=== PATIENT | female | born 1960 | race Two or more races ===

== ENCOUNTER 2017-04-07 11:59 | Emergency (ER) | payer SELFPAY ==
[2017-04-07 12:05] VITALS: BP 121/75
--- NOTE | 2017-04-07 12:28 | ED Physician Documentation ---
History of Present Illness - Stated complaint Stated Complaint: LT FOOT BLISTER - Chief complaint Chief Complaint: Ext Problem - History obtained from History obtained from: Patient, Family - History of Present Illness Timing: Other (1 year) Pain level max: 5 Pain level now: 4 Improved by: rest Worsened by: walking - Additonal information Additional information: Patient is a 56-year-old female who presents to the emergency department with what she states is a plantar wart to the bottom of the left foot. Was seen in the clinic and had a freezing procedure done. Has also been applying Salicylic acid. States that it has now become painful. Has not seen her primary care doctor since the original procedure several months ago. 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 : None HEENT: None Psych: None Musculoskeletal: None Derm: None - Past Surgical History Past Surgical History: Yes General: Appendectomy - Present Medications Home Medications: Ambulatory Orders Medication Instructions Recorded Confirmed Hydrocodone/Acetaminophen 1 - 2 each PO Q6H PRN #10 tablet 04/07/17 [Hydrocodon-Acetaminophen 5-325] - Allergies Allergies/Adverse Reactions: Allergies Allergy/AdvReac Type Severity Reaction Status Date / Time No Known Drug Allergies Allergy Verified 03/13/16 19:17 - Social History Does the pt smoke?: No Smoking Status: Never smoker Does the pt drink ETOH?: No Does the pt have substance abuse?: No - Immunizations Immunizations are current?: Yes - POLST Patient has POLST: No PD ED PE NORMAL - Vitals Vital signs reviewed: Yes - General General: Alert and oriented X 3, No acute distress - HEENT HEENT: Moist mucous membranes - Derm Derm: Warm and dry - Extremities Extremities: Other (L foot - plantar aspect 0.5cm x 0.5cm wart, no cellulitis or infection.) - Neuro Neuro: Alert and oriented X 3 - Psych Psych: Normal mood, Normal affect Results - Vitals Vitals: Vital Signs - 24 hr 04/07/17 12:02 Temperature 36.6 C Heart Rate 83 Respiratory 17 Rate Blood Pressure 121/75 O2 Saturation 98 Oxygen O2 Source Room air PD MEDICAL DECISION MAKING - ED course Complexity details: considered differential, d/w patient ED course: Patient is a 56-year-old female presents to the emergency department with plantar wart. No acute infection. Will refer to podiatry for further care. Patient counseled regarding signs and symptoms for which I believe and urgent re -evaluation would be necessary. Patient with good understanding of and agreement to plan and is comfortable going home at this time This document was made in part using voice recognition software. While efforts are made to proofread this document, sound alike and grammatical errors may occur. Departure - Departure Disposition: 01 Home, Self Care Clinical Impression: Plantar wart of left foot Condition: Good Instructions: ED Warts Plantar Follow-Up: Laura Light DPM [Provider Admit Priv/Credential] - Within 1 week Prescriptions: Hydrocodone/Acetaminophen [Hydrocodon-Acetaminophen 5-325] 1 - 2 each PO Q6H PRN #10 tablet PRN Reason: pain Comments: You need to follow up with podiatry for further care. Return if you worsen. Do not drink alcohol or drive while on narcotic pain medicine. Note that many narcotic pain relievers also contain tylenol/acetaminophen. Please ensure that your total dose of acetaminophen from all sources does not exceed 3 grams (3000mg) per day. You may constipated on this medication, take a stool softener such as "Colace" twice a day while you are on it. Also recommend a [id number]-[id number] laxative such as senna or MiraLAX any day that you do not have a bowel movement. If you received narcotic pain medication in the emergency department, do not drive or operate machinery for the next 24 hours.
== END 2017-04-07 12:48 | disposition home or self-care (01) ==
LOC: ED 11:59
DX: B07.0 Plantar wart (principal); Z86.73 Personal history of transient ischemic attack (TIA), and cerebral infarction without residual deficits
CPT/HCPCS: 99283

== ENCOUNTER 2018-04-11 10:01 | Outpatient (CLI) | payer SELFPAY ==
[2018-04-11 14:03] LABS: BASOPHILS # (AUTO) 0.1 10^3/uL (0.0-0.1); EOSINOPHILS # (AUTO) 0.6 10^3/uL (0.0-0.7); EOSINOPHILS % (AUTO) 7.5 %; HGB - HEMOGLOBIN 12.9 g/dL (12.0-16.0); LYMPHOCYTES # (AUTO) 2.9 10^3/uL (1.5-3.5); LYMPHOCYTES % (AUTO) 36.4 %; MEAN CORPUSCULAR HEMOGLOBIN 30.5 pg (27.0-31.0); MEAN CORPUSCULAR HGB CONC 34.9 g/dL (32.0-36.0); MEAN CORPUSCULAR VOLUME 87.4 fL (81.0-99.0); MEAN PLATELET VOLUME 9.1 fL (7.9-10.8); MONOCYTES # (AUTO) 0.5 10^3/uL (0.0-1.0); NEUTROPHILS # (AUTO) 3.9 10^3/uL (1.5-6.6); NEUTROPHILS % (AUTO) 49.1 %; PLT - PLATELET COUNT 377 10^3/uL (130-450); RED BLOOD COUNT 4.23 10^6/uL (4.20-5.40); RED CELL DISTRIBUTION WIDTH 13.5 % (12.0-15.0); WHITE BLOOD COUNT 7.9 x10^3/uL (4.8-10.8)
[2018-04-11 14:10] LABS: BILIRUBIN,URINE NEGATIVE (NEGATIVE); GLUCOSE, URINE (UA) NEGATIVE (NEGATIVE); KETONES,URINE (UA) NEGATIVE (NEGATIVE); LEUKOCYTE ESTERASE, URINE TRACE (NEGATIVE); NITRITE,URINE NEGATIVE (NEGATIVE); OCCULT BLOOD,URINE NEGATIVE (NEGATIVE); PH,URINE 5.5 PH (5.0-7.5); PROTEIN,URINE NEGATIVE (NEGATIVE); UROBILINOGEN,URINE 0.2 (NORMAL) E.U./dL (NORMAL)
[2018-04-11 14:14] LABS: ALBUMIN/GLOBULIN RATIO 1.1 (1.0-2.2); BILIRUBIN,TOTAL 1.3 mg/dL (0.2-1.0); CALCIUM 9.3 mg/dL (8.5-10.3); TOTAL PROTEIN 7.7 g/dL (6.7-8.2)
[2018-04-11 14:23] LABS: AMORPHOUS SEDIMENT,UR Marked /LPF; BACTERIA,URINE Rare /HPF (None Seen); CLARITY,URINE TURBID (CLEAR); RBC,URINE None Seen /HPF (0-5); SQUAMOUS EPITHELIAL CELL,UR NONE SEEN (<= Few)
== END 2018-04-11 23:59 | disposition home or self-care (01) ==
LOC: LAB.R 10:01
PROVIDERS: ATTEND Nurse Practitioner
DX: R53.83 Other fatigue (principal); R10.2 Pelvic and perineal pain
CPT/HCPCS: 80053; 81001; 85025; 87086

== ENCOUNTER 2018-04-29 16:25 | Outpatient (CLI) | payer SELFPAY | END 2018-04-29 23:59 | disposition home or self-care (01) | LOC: LAB.R 16:25 | PROVIDERS: ATTEND Registered Nurse | DX: N72 Inflammatory disease of cervix uteri (principal) | CPT/HCPCS: 87491; 87591 ==

== ENCOUNTER 2018-06-07 14:17 | Outpatient (CLI) | payer SELFPAY ==
--- NOTE | 2018-06-08 12:00 | MRI Report ---
Reason: SOLITARY RENAL CYCSTIC DISEASE Procedure Date: 06/07/2018 Accession Number: [id number] / [id number] Procedure: MRI - Abdomen W/O CPT Code: FULL RESULT: EXAM: MR ABDOMEN WITHOUT CONTRAST EXAM DATE: 06/07/2018 03:03 PM. CLINICAL HISTORY: Solitary renal cystic disease. Questionable septation in the left renal cyst, further characterization. COMPARISON: ABDOMEN/PELVIS W/ 03/13/2016 8:37 PM. TECHNIQUE: Multiplanar breath-hold T1, T2, and DWI sequences obtained through the abdomen on an MR scanner. Images are obtained without intravenous contrast administration. FINDINGS: Lung Bases: Unremarkable. Liver: Numerous hepatic cysts are noted, the largest of which measures 1.1 cm. Opposed phase imaging suggestive of hepatic steatosis. Gallbladder: The gallbladder is partially distended and appears normal with no wall thickening or stone. Bile Ducts: No intrahepatic or extrahepatic duct dilatation. Pancreas: The pancreas appears normal with no mass. The pancreatic duct measures 2 mm in diameter and appears normal with no stone or stricture. Spleen: The spleen appears normal. Kidneys: There is a sub-5 mm right renal cyst as well as a 1.1 cm left renal cyst. A septation is confirmed within the left renal cyst. No hydronephrosis. Adrenals: The adrenals appear normal. Bowel: The visualized segments of the small bowel and colon appear normal with no inflammation or obstruction. Retroperitoneum: The retroperitoneal structures appear normal with no mass or lymphadenopathy. Other: None. IMPRESSION: Septated left renal cyst, 1.1 cm size. Hepatic steatosis. RADIA
== END 2018-06-07 14:18 | disposition home or self-care (01) ==
LOC: DI 14:17
PROVIDERS: ATTEND Registered Nurse
DX: Q61.01 Congenital single renal cyst (principal); K76.0 Fatty (change of) liver, not elsewhere classified
CPT/HCPCS: 74181

== ENCOUNTER 2019-03-07 01:33 | Emergency (ER) | payer SELFPAY ==
--- NOTE | 2019-03-07 02:21 | ED Physician Documentation ---
PD HPI HEENT - Stated complaint Stated Complaint: FACE PX - Chief complaint Chief Complaint: Heent - History obtained from History obtained from: Patient, Family (daughter helping with translation at the approval of the patient) - History of Present Illness Timing - onset: How many days ago (3) Timing - duration: Days (3) Timing - details: Gradual onset, Still present (worsening each day, and is very painful today) Location: Other (left side of face around the orbit and to left side of head and around the ear, but not the ear canal area. Has increasing pain and today noted tenderness without rash nor sores in that area.) Improves: No: Medication (ibuprofen) Worsens: Other (palpation and movement). No: Swalllowing, Position Associated symptoms: Facial swelling, Headache (left parietal area and frontal area). No: Fever, Congestion, Unable to swallow Similar symptoms before: Has not had sx before Review of Systems Constitutional: denies: Fever, Chills, Myalgias Eyes: reports: Irritation. denies: Loss of vision, Discharge Ears: denies: Ear pain, Drainage/discharge Nose: denies: Rhinorrhea / runny nose, Congestion Throat: denies: Dental pain / toothache, Oral lesions / sores, Sore throat Skin: denies: Rash, Lesions Neurologic: reports: Headache. 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 : None HEENT: None Psych: None Musculoskeletal: None Derm: None - Past Surgical History Past Surgical History: Yes General: Appendectomy - Present Medications Home Medications: Ambulatory Orders Medication Instructions Recorded Confirmed traMADol [Ultram] 50 mg PO Q4-6H PRN #10 tablet 04/07/17 Amitriptyline [Elavil] 25 mg PO QPM #20 tablet 03/07/19 Ondansetron Odt [Zofran] 4 mg TL Q6H PRN #15 tablet 03/07/19 Oxycodone HCl/Acetaminophen 1 each PO Q6H PRN #20 tablet 03/07/19 [Percocet 5-325 mg Tablet] Valacyclovir HCl [Valacyclovir] 1,000 mg PO TID #20 tablet 03/07/19 dexAMETHasone [Decadron] 4 mg PO DAILY #7 tablet 03/07/19 - Allergies Allergies/Adverse Reactions: Allergies Allergy/AdvReac Type Severity Reaction Status Date / Time hydrocodone Allergy Headache Verified 03/07/19 01:44 - Social History Does the pt smoke?: No Smoking Status: Never smoker Does the pt drink ETOH?: No Does the pt have substance abuse?: No - Immunizations Immunizations are current?: Yes - POLST Patient has POLST: No PD ED PE NORMAL - Vitals Vital signs reviewed: Yes - General General: Alert and oriented X 3, Well developed/nourished, Other (appears in pain) - HEENT HEENT: PERRL, EOMI (no pain with light. Anterior and posterior chambars appear normal. ), Ears normal, Pharynx benign - Neck Neck: Supple, no meningeal sign, Other (there is tenderness to light touch and with palpation of the skin left side of face demarceted to exactly left of midline and periorbital and to left side of head. ) - Cardiac Cardiac: RRR, No murmur - Respiratory Respiratory: Clear bilaterally - Abdomen Abdomen: Soft, Non tender - Derm Derm: Normal color, Warm and dry, No rash - Neuro Neuro: Alert and oriented X 3, laboratory geneticist 2-12 intact, No motor deficit, No sensory deficit Results - Vitals Vitals: Oxygen O2 Source Room air PD MEDICAL DECISION MAKING - ED course Complexity details: considered differential (She has increasing pain and considerable tenderness to palpation and also just with light touch in the left periorbital and frontal and parietal areas. No rashes seen at this point but it sounds very likely to be developing shingles. We will treated as such at this time.), d/w patient Departure - Departure Disposition: 01 Home, Self Care Clinical Impression: Left-sided face pain Shingles Qualifiers: Herpes zoster complications: without complications Qualified Code(s): B02.9 - Zoster without complications Condition: Stable Record reviewed to determine appropriate education?: Yes Instructions: ED Shingles Prescriptions: Amitriptyline [Elavil] 25 mg PO QPM #20 tablet dexAMETHasone [Decadron] 4 mg PO DAILY #7 tablet Ondansetron Odt [Zofran] 4 mg TL Q6H PRN #15 tablet PRN Reason: Nausea / Vomiting Oxycodone HCl/Acetaminophen [Percocet 5-325 mg Tablet] 1 each PO Q6H PRN #20 tablet PRN Reason: pain Valacyclovir HCl [Valacyclovir] 1,000 mg PO TID #20 tablet Comments: I think the pain and tenderness are the symptoms of shingles outbreak. I would anticipate some rash develop in the next day or 2. Meanwhile we will treated as a nerve irritation and likely shingles. Valacyclovir antiviral 3 times a day for a week. Decadron steroid for inflammation of the nerve daily for a week. Elavil daily for 3 weeks to decrease the nerve irritation and inflammation as well. Tylenol or ibuprofen if needed for pains. Add ondansetron if needed for nausea (this may come from the medications at times). Oxycodone if needed for pain. Follow-up with your primary care or return to the ER if not improving symptoms well over the next 2 to 3 days and return sooner if worsening or other symptoms develop. Discharge Date/Time: 03/07/19 03:46
[2019-03-07] MEDS ORDERED: ACYCLOVIR 200 MG CAPSULE PO STA (03:01)
[2019-03-07] MEDS ORDERED: ONDANSETRON ODT 4 MG TABLET TL STA (03:01)
[2019-03-07] MEDS ORDERED: CHERRY SYRUP 10 ML UDC PO ONE (03:01)
[2019-03-07] MEDS ORDERED: HYDROmorphone 2 MG/ML VIAL IM STA (03:01)
[2019-03-07] MEDS ORDERED: DEXAMETHASONE 10 MG/ML VIAL PO STA (03:01)
[2019-03-07] MEDS ORDERED: oxyCODONE/ACET 5/325 Prepack 4 PO STA (03:01)
[2019-03-07] MEDS ORDERED: ACETAMINOPHEN 325 MG TABLET PO STA (03:01)
[2019-03-07 03:36] VITALS: BP 139/86
== END 2019-03-07 03:46 | disposition home or self-care (01) ==
LOC: ED 01:33
DX: B02.9 Zoster without complications (principal); R51 Headache
CPT/HCPCS: 96372; 99284; A9270; J1170; Q0162

== ENCOUNTER 2022-03-15 12:51 | Emergency (ER) | payer OTHER ==
[2022-03-15 13:19] VITALS: BP 120/66
--- NOTE | 2022-03-15 14:07 | ED Physician Documentation ---
History of Present Illness - Stated complaint Stated Complaint: BACK PAIN - Chief complaint Chief Complaint: Trauma Hd/Nk - Additonal information Additional information: 7-year-old female presents emergency department for evaluation of 2 days centralized neck pain that radiates down her body and spine. She denies any falls or trauma she denies any fevers. She states that when the pain comes it causes her to feel nauseated. She is denying chest pain or shortness of breath no cough. No history of diabetes. On exam in the room the patient is in the position and reports that everything everywhere hurts. Her son is acting as p rimary residential assistant. Patient declined formal Italian language line residential assistant. Patient was positive for COVID about 1 month ago and incidentally the patient's other son had the flu about 1 week ago. Patient has been taken Tylenol and ibuprofen without relief of symptoms Review of Systems Unable to obtain: Other (Italian language) Constitutional: reports: Myalgias. 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 : None HEENT: None Psych: None Musculoskeletal: None Derm: None - Past Surgical History Past Surgical History: Yes General: Appendectomy - Present Medications Home Medications: Ambulatory Orders Medication Instructions Recorded Confirmed traMADol [Ultram] 50 mg PO Q4-6H PRN #10 tablet 04/07/17 Amitriptyline [Elavil] 25 mg PO QPM #20 tablet 03/07/19 Ondansetron Odt [Zofran] 4 mg TL Q6H PRN #15 tablet 03/07/19 Oxycodone HCl/Acetaminophen 1 each PO Q6H PRN #20 tablet 03/07/19 [Percocet 5-325 mg Tablet] Valacyclovir HCl [Valacyclovir] 1,000 mg PO TID #20 tablet 03/07/19 dexAMETHasone [Decadron] 4 mg PO DAILY #7 tablet 03/07/19 - Allergies Allergies/Adverse Reactions: Allergies Allergy/AdvReac Type Severity Reaction Status Date / Time hydrocodone Allergy Headache Verified 03/15/22 13:19 - Social History Does the pt smoke?: No Smoking Status: Never smoker Does the pt drink ETOH?: No Does the pt have substance abuse?: No - Immunizations Immunizations are current?: Yes - POLST Patient has POLST: No PD ED PE NORMAL - General General: Alert and oriented X 3, Well developed/nourished (Appears uncomfortable and in the position. Hugging her chest as though everything hurts) - HEENT HEENT: Atraumatic, Ears normal, Moist mucous membranes - Neck Neck: Supple, no meningeal sign, No adenopathy, Other (Full range of motion of cervical spine in all planes without tenderness. However any palpation of the cervical or thoracic spine including the paraspinous muscles elicits tenderness.) - Cardiac Cardiac: RRR, No murmur - Respiratory Respiratory: No respiratory distress, Clear bilaterally - Abdomen Abdomen: Normal bowel sounds, Soft - Back Back: No CVA TTP - Derm Derm: Normal color, Warm and dry - Extremities Extremities: No deformity, No tenderness to palpate, Normal ROM s pain - Neuro Neuro: Alert and oriented X 3, manager site 2-12 intact Eye Opening: Spontaneous Motor: Obeys Commands Verbal: Oriented GCS Score: 15 Results - Vitals Vitals: Vital Signs - 24 hr 03/15/22 13:13 Temperature 36.9 C Heart Rate 90 Respiratory 18 Rate Blood Pressure 120/66 O2 Saturation 97 Oxygen O2 Source Room air - Labs Labs: Laboratory Tests 03/15/22 14:06 Influenza A (Rapid) POSITIVE H Influenza B (Rapid) Negative - Rads (name of study) cxr Radiology: Final report received (No acute process) PD MEDICAL DECISION MAKING - ED course Complexity details: reviewed results, re-evaluated patient, considered differential, d/w patient, d/w family ED course: This is a 61-year-old female that presents emergency department for 3 days of neck pain. No falls or trauma and the exam of her neck is rather reassuring with full range of motion in all planes. However she states that the pain radiates down her entire spine. On palpation pain was elicited but pain was also elicited with palpation of the back and body in general. She was nonmeningeal. She was hugging her self as though everything hurt and her son had recently been positive for the flu. Given this knowledge I did do a rapid influenza test and she is positive for influenza A. However she is outside the window of treatment for consideration of Tamiflu. I did obtain a chest x-ray and there are no findings to suggest pneumonia. I discussed the findings of influenza A with the patient and her son. We discussed routine conservative measurements that can include ibuprofen and Tylenol, good hydration. We also discussed that most of the symptoms will begin to resolve between 5 and 7 days. Emergent return precautions were discussed for worsening symptoms. Departure - Departure Disposition: 01 Home, Self Care Clinical Impression: Influenza A, Neck pain Condition: Stable Record reviewed to determine appropriate education?: Yes Instructions: ED Flu Comments: Sharon tested positive for influenza A today. This is the cause of her neck and pain in general. I do recommend that she take 600 mg of ibuprofen with food 2-3 times a day. Alternatively she can try taking 500 mg of Tylenol 3 times a day as well. In general is important to stay well-hydrated this in fact may help reduce her body aches. Her chest x-ray today is normal and does not show any findings of pneumonia. Most people that have the flu will have a lot of body aches and pain for 3 to 7 days. I expect that she will start to feel better in a few days. If her symptoms are worsening, she develops high fevers, has uncontrolled vomiting or diarrhea then she should return to the ER for a second evaluation.
--- NOTE | 2022-03-15 14:23 | XRAY Report ---
PROCEDURE: Chest 1 View X-Ray INDICATIONS: chest pain TECHNIQUE: One view of the chest was acquired. COMPARISON: 01/19/2015 FINDINGS: Surgical changes and devices: None. Lungs and pleura: No pleural effusions or pneumothorax. Lungs are clear. Mediastinum: Mediastinal contours appear normal. Heart size is normal. Bones and chest wall: No suspicious bony lesions. Overlying soft tissues appear unremarkable. IMPRESSION: No acute process. Reviewed by: Ermelinda Thompson MD on 03/15/2022 1:21 PM [facility] [[email or web address]] Approved by: Ermelinda Thompson MD on 03/15/2022 1:21 PM [facility] [[email or web address]] Station ID: [id number]
[2022-03-15] MEDS ORDERED: IBUPROFEN 600 MG TABLET PO STA (14:37)
== END 2022-03-15 15:06 | disposition home or self-care (01) ==
LOC: ED 12:51
DX: J10.1 Influenza due to other identified influenza virus with other respiratory manifestations (principal); M54.2 Cervicalgia; Z86.16 Personal history of COVID-19
CPT/HCPCS: 71045; 87275; 87276; 99282; 99283; A9270

== ENCOUNTER 2022-12-17 08:00 | Outpatient (CLI) | payer OTHER ==
[2022-12-17 18:08] LABS: BILIRUBIN,URINE NEGATIVE (NEGATIVE); GLUCOSE, URINE (UA) NEGATIVE (NEGATIVE); KETONES,URINE (UA) NEGATIVE (NEGATIVE); LEUKOCYTE ESTERASE, URINE NEGATIVE (NEGATIVE); NITRITE,URINE NEGATIVE (NEGATIVE); OCCULT BLOOD,URINE NEGATIVE (NEGATIVE); PROTEIN,URINE NEGATIVE (NEGATIVE); UROBILINOGEN,URINE 0.2 (NORMAL) E.U./dL (NORMAL)
[2022-12-17 18:27] LABS: CLARITY,URINE CLEAR (CLEAR)
[2022-12-17 19:01] LABS: WBC,URINE 0-3 /HPF (0-5)
[2022-12-17 19:02] LABS: BACTERIA,URINE Few /HPF (None Seen); RBC,URINE None Seen /HPF (0-5); SQUAMOUS EPITHELIAL CELL,UR FEW Squamous (<= Few)
== END 2022-12-17 23:59 | disposition home or self-care (01) ==
LOC: LAB 08:00
PROVIDERS: ATTEND Nurse Practitioner
DX: R10.2 Pelvic and perineal pain (principal); R10.31 Right lower quadrant pain; R10.11 Right upper quadrant pain
CPT/HCPCS: 81001; 87086

== ENCOUNTER 2022-12-17 14:36 | Outpatient (CLI) | payer OTHER ==
[2022-12-17 14:50] LABS: BASOPHILS # (AUTO) 0.1 10^3/uL (0.0-0.1); BASOPHILS % (AUTO) 0.9 %; EOSINOPHILS # (AUTO) 0.3 10^3/uL (0.0-0.7); EOSINOPHILS % (AUTO) 3.8 %; HCT - HEMATOCRIT 34.5 % (37.0-47.0); HGB - HEMOGLOBIN 11.5 g/dL (12.0-16.0); LYMPHOCYTES # (AUTO) 2.9 10^3/uL (1.5-3.5); LYMPHOCYTES % (AUTO) 31.8 %; MEAN CORPUSCULAR HEMOGLOBIN 29.9 pg (27.0-31.0); MEAN CORPUSCULAR HGB CONC 33.3 g/dL (32.0-36.0); MEAN CORPUSCULAR VOLUME 89.6 fL (81.0-99.0); MEAN PLATELET VOLUME 9.6 fL (7.9-10.8); MONOCYTES # (AUTO) 0.6 10^3/uL (0.0-1.0); MONOCYTES % (AUTO) 6.1 %; NEUTROPHILS # (AUTO) 5.1 10^3/uL (1.5-6.6); NEUTROPHILS % (AUTO) 57.3 %; PLT - PLATELET COUNT 397 10^3/uL (130-450); RED BLOOD COUNT 3.85 10^6/uL (4.20-5.40); RED CELL DISTRIBUTION WIDTH 12.6 % (12.0-15.0)
[2022-12-17 15:02] LABS: ALBUMIN 3.9 g/dL (3.2-5.5); ALBUMIN/GLOBULIN RATIO 1.1 (1.0-2.2); BILIRUBIN,TOTAL 0.9 mg/dL (0.2-1.0); CALCIUM 8.8 mg/dL (8.5-10.3); CREATININE 1.7 mg/dL (0.4-1.0); POTASSIUM 3.8 mmol/L (3.5-5.0); TOTAL PROTEIN 7.6 g/dL (6.7-8.2)
--- NOTE | 2022-12-17 18:18 | XRAY Report ---
PROCEDURE: Thoracic Spine 2 View INDICATIONS: THORACIC BACK PAIN TECHNIQUE: 2 views of the thoracic spine were acquired. COMPARISON: None. FINDINGS: Bones: No fractures or dislocations. Mild degenerative endplate changes are seen in mid to lower tho racic spine. No suspicious bony lesions. 12 pairs of ribs are noted, and appear intact where visuali zed. Soft tissues: No paravertebral stripe thickening. 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 No acute compression fracture or spond ylolisthesis. Reviewed by: Antoine Garcia MD on 12/17/2022 6:17 PM PDT Approved by: Antoine Garcia MD on 12/17/2022 6:17 PM PDT Station ID: [id number]
--- NOTE | 2022-12-17 18:18 | XRAY Report ---
PROCEDURE: Lumbar Spine 2 View INDICATIONS: BACK PAIN LOW TECHNIQUE: 3 views of the lumbar spine were acquired. COMPARISON: None. FINDINGS: Bones: 5 [id number] vertebrae are present. There is normal bony alignment. Degenerative endpl ate changes, loss of disc height and bilateral facet arthrosis throughout lumbar spine is seen more n otably at L4-5 and L5-S1 levels. No vertebral body compression fractures. No suspicious bony lesions . Soft tissues: Overlying bowel gas pattern is normal. No suspicious soft tissue calcifications. IMPRESSION: No acute compression fracture. Degenerative disc disease throughout lumbar spine. Reviewed by: Antoine Garcia MD on 12/17/2022 6:17 PM PDT Approved by: Antoine Garcia MD on 12/17/2022 6:17 PM PDT Station ID: [id number]
== END 2022-12-17 14:37 | disposition home or self-care (01) ==
LOC: DI 14:36
PROVIDERS: ATTEND Nurse Practitioner
DX: M51.34 Other intervertebral disc degeneration, thoracic region (principal); M51.36 Other intervertebral disc degeneration, lumbar region; R10.2 Pelvic and perineal pain; R10.31 Right lower quadrant pain; R10.11 Right upper quadrant pain
CPT/HCPCS: 36415; 80053; 81001; 82150; 83690; 85025; 87086

== ENCOUNTER 2022-12-18 08:55 | Outpatient (CLI) | payer OTHER ==
[2022-12-18] MEDS ORDERED: IOVERSOL 320 100 ML VIAL IVP ONE (10:58)
[2022-12-18] MEDS ORDERED: BARIUM SULFATE 450 ML BOTTLE PO ONE (10:58)
--- NOTE | 2022-12-18 11:55 | CT Report ---
PROCEDURE: ABDOMEN/PELVIS W INDICATIONS: ABD PAIN CONTRAST: 100ml Optiray 320 TECHNIQUE: After the administration of oral and intravenous contrast, 5 mm thick sections acquired from the diap hragms to the symphysis. 5 mm thick coronal and sagittal reformats were acquired. For radiation dos e reduction, the following was used: automated exposure control, adjustment of mA and/or kV accordin g to patient size. COMPARISON: MRI abdomen 06/07/2018, CT abdomen pelvis 03/13/2016. FINDINGS: Image quality: Excellent. Lung bases and heart: Unremarkable. Liver: No solid mass. Numerous tiny hepatic cysts, unchanged. Gallbladder and biliary tree: Not distended. No biliary ductal dilatation. Spleen: No splenomegaly. Pancreas: No pancreatic ductal dilation. Adrenals: No adrenal nodule. Kidneys and ureters: No hydronephrosis. No renal cystic lesion which requires follow up. No solid mas s. Bowel and peritoneum: No bowel distension. No pathologic free fluid. Appendix is absent. Lymph nodes: No central or retroperitoneal adenopathy. Vessels: No infrarenal aortic aneurysm. PELVIS Reproductive organs: Retroverted uterus. Bladder: Cystocele. No stone. Pelvic lymph nodes: No pelvic adenopathy by size criteria. Bones: No aggressive osseous abnormality. Other: No significant ventral or inguinal hernia. IMPRESSION: Source for abdominal pain is not identified. No bowel obstruction. No free fluid. Post appendectomy. Cystocele. Reviewed by: Sj Pereira MD on 12/18/2022 11:54 AM PDT Approved by: Sj Pereira MD on 12/18/2022 11:54 AM PDT Station ID: [id number]
== END 2022-12-18 08:56 | disposition home or self-care (01) ==
LOC: DI 08:55
PROVIDERS: ATTEND Nurse Practitioner
DX: R10.11 Right upper quadrant pain (principal); R10.31 Right lower quadrant pain; R10.2 Pelvic and perineal pain; N81.10 Cystocele, unspecified; Z90.89 Acquired absence of other organs
CPT/HCPCS: 74177; A9270; Q9967

== ENCOUNTER 2023-01-07 15:15 | Outpatient (CLI) | payer OTHER ==
[2023-01-07 16:05] LABS: BILIRUBIN,URINE NEGATIVE (NEGATIVE); GLUCOSE, URINE (UA) NEGATIVE (NEGATIVE); KETONES,URINE (UA) NEGATIVE (NEGATIVE); LEUKOCYTE ESTERASE, URINE NEGATIVE (NEGATIVE); NITRITE,URINE NEGATIVE (NEGATIVE); OCCULT BLOOD,URINE NEGATIVE (NEGATIVE); PROTEIN,URINE NEGATIVE (NEGATIVE); UROBILINOGEN,URINE 0.2 (NORMAL) E.U./dL (NORMAL)
[2023-01-07 16:08] LABS: CALCIUM 9.4 mg/dL (8.5-10.3); CREATININE 1.4 mg/dL (0.6-1.3); PHOSPHORUS 2.9 mg/dL (2.5-5.0); POTASSIUM 3.8 mmol/L (3.5-4.5)
[2023-01-07 16:12] LABS: CLARITY,URINE CLEAR (CLEAR)
[2023-01-07 16:21] LABS: BACTERIA,URINE None Seen /HPF (None Seen); RBC,URINE None Seen /HPF (0-5); SQUAMOUS EPITHELIAL CELL,UR NONE SEEN (<= Few); WBC,URINE 0-3 /HPF (0-5)
[2023-01-07 16:28] LABS: CREATININE,URINE 19.8 mg/dL; TOTAL PROTEIN,URINE TIMED < 4 mg/dL
[2023-01-08 02:08] LABS: HEPATITIS B SURFACE AB QUANT <3.1 mIU/mL (Immunity>9.9)
[2023-01-08 04:09] LABS: COMPLEMENT C3 137 mg/dL (82-167); COMPLEMENT C4 24 mg/dL (12-38); HCV AB Non Reactive (Non Reactive)
[2023-01-09 06:10] LABS: MYELOPEROXIDASE (MPO) AB <0.2 units (0.0-0.9); PROTEINASE 3 (PR-3) AB <0.2 units (0.0-0.9)
[2023-01-11 10:08] LABS: ANTINUCLEAR ANTIBODIES IFA Positive (.)
[2023-01-11 16:09] LABS: A/G RATIO 1.1 (0.7-1.7); ALBUMIN 3.8 g/dL (2.9-4.4); ALPHA-1-GLOBULIN 0.2 g/dL (0.0-0.4); ALPHA-2-GLOBULIN 0.9 g/dL (0.4-1.0); BETA GLOBULIN 1.2 g/dL (0.7-1.3); GAMMA GLOBULIN 1.3 g/dL (0.4-1.8); GLOBULIN TOTAL 3.6 g/dL (2.2-3.9); IMMUNOGLOBULIN A (IGA) 343 mg/dL (87-352); IMMUNOGLOBULIN G (IGG) 1202 mg/dL (586-1602); IMMUNOGLOBULIN M (IGM) 147 mg/dL (26-217); M-SPIKE Not Observed g/dL (Not Observed); PROTEIN TOTAL 7.4 g/dL (6.0-8.5)
== END 2023-01-07 15:16 | disposition home or self-care (01) ==
LOC: LAB 15:15
PROVIDERS: ATTEND Internal Medicine Nephrology
DX: N25.81 Secondary hyperparathyroidism of renal origin (principal); I50.32 Chronic diastolic (congestive) heart failure; B19.10 Unspecified viral hepatitis B without hepatic coma; R80.9 Proteinuria, unspecified; L93.2 Other local lupus erythematosus; M31.30 Wegener's granulomatosis without renal involvement; N00.9 Acute nephritic syndrome with unspecified morphologic changes; I77.6 Arteritis, unspecified; D47.2 Monoclonal gammopathy; N30.00 Acute cystitis without hematuria; E83.30 Disorder of phosphorus metabolism, unspecified; B17.10 Acute hepatitis C without hepatic coma
CPT/HCPCS: 36415; 80048; 81001; 81599; 82570; 82784; 83516; 83970; 84100; 84155; 84156; 84165; 86036; 86038; 86160; 86317; 86334; 86803

== ENCOUNTER 2023-01-22 15:58 | Outpatient (CLI) | payer OTHER ==
--- NOTE | 2023-01-22 17:11 | Ultrasound Report ---
PROCEDURE: Retroperitoneal INDICATIONS: KIDNEY DISEASE TECHNIQUE: Real-time scanning was performed of the retroperitoneal organs, with image documentation. COMPARISON: CT abdomen and pelvis with contrast dated 12/18/2022. FINDINGS: Kidneys: Kidneys are normal in size. Right kidney measures 9.4 cm long on today's ultrasound. It is a under estimation, as the kidneys at least 10.[address] left kidney measures 8.9 cm below . This is also noted in underestimation, as by CT, it measures 9.3 cm. Right renal cortical thickness is 8.9 cm; left renal cortical thickness is 0.6 cm. No solid masses, hydronephrosis, or nephrolithi asis. Bladder: Pre-void bladder volume is 274.2 mL. Post-void residual is 14.9 mL. Pre-void images demon strate no intraluminal masses or stones. On pre-void images, bilateral ureteral jets are noted with color Doppler interrogation. (Of note, ureteral jets may not be detectable in up to 25% of cases due to insufficient differences in specific gravity between ureteral and bladder urine). Miscellaneous: No free abdominal fluid. IMPRESSION: Normal size kidneys with no evidence of hydronephrosis. Unremarkable bladder with no significant post void residual. Reviewed by: Sunday Jamison MD on 01/22/2023 5:09 PM PDT Approved by: Sunday Jamison MD on 01/22/2023 5:09 PM PDT Station ID: [id number]
== END 2023-01-22 15:59 | disposition home or self-care (01) ==
LOC: DI 15:58
PROVIDERS: ATTEND Internal Medicine Nephrology
DX: N18.32 Chronic kidney disease, stage 3b (principal)

== ENCOUNTER 2023-02-11 14:01 | Outpatient (CLI) | payer OTHER ==
[2023-02-11 14:45] LABS: CREATININE 1.5 mg/dL (0.6-1.3); POTASSIUM 3.7 mmol/L (3.5-4.5)
== END 2023-02-11 14:02 | disposition home or self-care (01) ==
LOC: LAB 14:01
PROVIDERS: ATTEND Internal Medicine Nephrology
DX: N05.9 Unspecified nephritic syndrome with unspecified morphologic changes (principal)
CPT/HCPCS: 36415; 80048

== ENCOUNTER 2023-03-05 08:55 | Outpatient (CLI) | payer OTHER ==
[2023-03-05 09:06] LABS: BASOPHILS # (AUTO) 0.1 10^3/uL (0.0-0.1); BASOPHILS % (AUTO) 1.8 %; EOSINOPHILS # (AUTO) 0.6 10^3/uL (0.0-0.7); EOSINOPHILS % (AUTO) 7.7 %; HGB - HEMOGLOBIN 11.3 g/dL (12.0-16.0); LYMPHOCYTES # (AUTO) 2.7 10^3/uL (1.5-3.5); LYMPHOCYTES % (AUTO) 36.2 %; MEAN CORPUSCULAR HEMOGLOBIN 29.9 pg (27.0-31.0); MEAN CORPUSCULAR HGB CONC 33.2 g/dL (32.0-36.0); MEAN CORPUSCULAR VOLUME 89.9 fL (81.0-99.0); MONOCYTES # (AUTO) 0.4 10^3/uL (0.0-1.0); MONOCYTES % (AUTO) 5.7 %; NEUTROPHILS # (AUTO) 3.6 10^3/uL (1.5-6.6); NEUTROPHILS % (AUTO) 48.5 %; PLT - PLATELET COUNT 321 10^3/uL (130-450); RED BLOOD COUNT 3.78 10^6/uL (4.20-5.40); WHITE BLOOD COUNT 7.3 x10^3/uL (4.8-10.8)
[2023-03-05 09:21] LABS: ALBUMIN 4.4 g/dL (3.2-5.5); ALBUMIN/GLOBULIN RATIO 1.6 (1.0-2.2); ALKALINE PHOSPHATASE 88 IU/L (42-121); ALT ALANINE AMINOTRANSFERASE 13 IU/L (10-60); AST ASPARTATE AMINOTRANSFERASE 18 IU/L (10-42); BILIRUBIN,TOTAL 0.9 mg/dL (0.2-1.0); BUN - BLOOD UREA NITROGEN 26 mg/dL (6-20); CALCIUM 9.8 mg/dL (8.5-10.3); CARBON DIOXIDE - CO2 23 mmol/L (21-32); CHLORIDE 108 mmol/L (101-111); CHOL/HDL RATIO 7.4 (<4.4); CHOLESTEROL 280 mg/dL; CREATININE 1.4 mg/dL (0.6-1.3); GFR - MDRD 38 (>89); GLUCOSE 93 mg/dL (74-104); HDL CHOLESTEROL 38 mg/dL; LDL CHOLESTEROL,CALCULATED 185 mg/dL; LDL/HDL RATIO 4.9 (<4.4); POTASSIUM 4.5 mmol/L (3.5-4.5); SODIUM 140 mmol/L (135-145); TOTAL PROTEIN 7.2 g/dL (6.4-8.9); TRIGLYCERIDES 285 mg/dL (48-352); VLDL CHOLESTEROL 57 mg/dL
[2023-03-05 11:03] LABS: ESTIMATED AVERAGE GLUCOSE 111 mg/dL (70-100); HEMOGLOBIN A1c% 5.5 % (4.27-6.07)
== END 2023-03-05 08:56 | disposition home or self-care (01) ==
LOC: LAB 08:55
PROVIDERS: ATTEND Nurse Practitioner
DX: R53.83 Other fatigue (principal); Z13.220 Encounter for screening for lipoid disorders; E66.9 Obesity, unspecified
CPT/HCPCS: 36415; 80053; 80061; 83036; 83721; 85025

== ENCOUNTER 2023-07-19 08:15 | Outpatient (CLI) | payer OTHER ==
[2023-07-19 12:13] LABS: BASOPHILS # (AUTO) 0.1 10^3/uL (0.0-0.1); BILIRUBIN,URINE NEGATIVE (NEGATIVE); EOSINOPHILS # (AUTO) 0.4 10^3/uL (0.0-0.7); EOSINOPHILS % (AUTO) 5.2 %; GLUCOSE, URINE (UA) NEGATIVE (NEGATIVE); HCT - HEMATOCRIT 32.9 % (37.0-47.0); HGB - HEMOGLOBIN 10.2 g/dL (12.0-16.0); KETONES,URINE (UA) NEGATIVE (NEGATIVE); LYMPHOCYTES # (AUTO) 2.8 10^3/uL (1.5-3.5); LYMPHOCYTES % (AUTO) 41.6 %; MEAN CORPUSCULAR HEMOGLOBIN 29.2 pg (27.0-31.0); MEAN CORPUSCULAR VOLUME 94.3 fL (81.0-99.0); MONOCYTES # (AUTO) 0.4 10^3/uL (0.0-1.0); MONOCYTES % (AUTO) 5.6 %; NEUTROPHILS # (AUTO) 3.1 10^3/uL (1.5-6.6); NEUTROPHILS % (AUTO) 46.3 %; NITRITE,URINE NEGATIVE (NEGATIVE); OCCULT BLOOD,URINE NEGATIVE (NEGATIVE); PH,URINE 6.5 PH (5.0-7.5); PLT - PLATELET COUNT 373 10^3/uL (130-450); PROTEIN,URINE NEGATIVE (NEGATIVE); RED BLOOD COUNT 3.49 10^6/uL (4.20-5.40); RED CELL DISTRIBUTION WIDTH 13.1 % (12.0-15.0); UROBILINOGEN,URINE 0.2 (NORMAL) E.U./dL (NORMAL); WHITE BLOOD COUNT 6.7 x10^3/uL (4.8-10.8)
[2023-07-19 12:30] LABS: CLARITY,URINE CLEAR (CLEAR)
[2023-07-19 12:35] LABS: BACTERIA,URINE Rare /HPF (None Seen); LEUKOCYTE ESTERASE, URINE 826880 (NEGATIVE); RBC,URINE 0-5 /HPF (0-5); SQUAMOUS EPITHELIAL CELL,UR RARE Squamous (<= Few); WBC,URINE 0-3 /HPF (0-5)
[2023-07-19 12:40] LABS: ALBUMIN 3.7 g/dL (3.2-5.5); ALBUMIN/GLOBULIN RATIO 1.3 (1.0-2.2); ALKALINE PHOSPHATASE 79 IU/L (42-121); ALT ALANINE AMINOTRANSFERASE 27 IU/L (10-60); AST ASPARTATE AMINOTRANSFERASE 20 IU/L (10-42); BILIRUBIN,TOTAL 0.5 mg/dL (0.2-1.0); BUN - BLOOD UREA NITROGEN 26 mg/dL (6-20); CALCIUM 9.4 mg/dL (8.5-10.3); CARBON DIOXIDE - CO2 23 mmol/L (21-32); CHLORIDE 112 mmol/L (101-111); CHOL/HDL RATIO 7.1 (<4.4); CHOLESTEROL 219 mg/dL; CREATININE 1.4 mg/dL (0.6-1.3); GFR - MDRD 38 (>89); GLUCOSE 91 mg/dL (74-104); HDL CHOLESTEROL 31 mg/dL; LDL CHOLESTEROL,CALCULATED 146 mg/dL; LDL/HDL RATIO 4.7 (<4.4); POTASSIUM 4.2 mmol/L (3.5-4.5); SODIUM 142 mmol/L (135-145); TOTAL PROTEIN 6.6 g/dL (6.4-8.9); TRIGLYCERIDES 211 mg/dL (48-352); VLDL CHOLESTEROL 42 mg/dL
== END 2023-07-19 08:16 | disposition home or self-care (01) ==
LOC: LAB.N 08:15
PROVIDERS: ATTEND Nurse Practitioner
DX: N18.32 Chronic kidney disease, stage 3b (principal); E78.5 Hyperlipidemia, unspecified; R10.31 Right lower quadrant pain
CPT/HCPCS: 36415; 80053; 80061; 81001; 83721; 85025

== ENCOUNTER 2023-09-09 01:25 | Emergency (ER) | payer OTHER ==
[2023-09-09 01:44] VITALS: O2SAT 100
[2023-09-09 01:54] LABS: RAPID STREP SCREEN Negative (Negative)
[2023-09-09] MEDS: ONDANSETRON ODT 4 MG TABLET TL STA (02:07)
[2023-09-09 02:36] LABS: B. PARAPERTUSSIS- RESP PCR PAN NOT DETECTED; B. PERTUSSIS- RESP PCR PANEL NOT DETECTED; C. PNEUMONIAE- RESP PCR PANEL NOT DETECTED; CORONAVIRUS 229E-RESP PCR NOT DETECTED; CORONAVIRUS HKU1-RESP PCR NOT DETECTED; CORONAVIRUS NL63-RESP PCR NOT DETECTED; CORONAVIRUS OC43-RESP PCR NOT DETECTED; HUMAN METAPNEUMOVIRUS NOT DETECTED; INFLUENZA A- RESP PCR PANEL NOT DETECTED; INFLUENZA B - RESP PCR PANEL NOT DETECTED; M. PNEUMONIAE- RESP PCR PANEL NOT DETECTED; PARAINFLUENZA VIRUS 1 NOT DETECTED; PARAINFLUENZA VIRUS 2 NOT DETECTED; PARAINFLUENZA VIRUS 3 NOT DETECTED; PARAINFLUENZA VIRUS 4 NOT DETECTED; RHINOVIRUS/ENTEROVIRUS NOT DETECTED; RSV- RESP PCR PANEL NOT DETECTED; SARS-CoV-2 -RESP PCR PANEL NOT DETECTED
--- NOTE | 2023-09-09 02:39 | ED Physician Documentation ---
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 She was sick while in [place] and took a lot of [id number] medications that may have irritated her stomach. Endorses burning sensation radiating up the throat. Denies fever today. PD PAST MEDICAL HISTORY - Past Medical History Past Medical History: No Cardiovascular: None Respiratory: None Endocrine/Autoimmune: None GI: None SCRATCHER: None : None HEENT: None Psych: None Musculoskeletal: None Derm: None - Past Surgical History Past Surgical History: Yes General: Appendectomy - Present Medications Home Medications: Ambulatory Orders Medication Instructions Recorded Confirmed traMADol [Ultram] 50 mg PO Q4-6H PRN #10 tablet 04/07/17 Amitriptyline [Elavil] 25 mg PO QPM #20 tablet 03/07/19 Ondansetron Odt [Zofran] 4 mg TL Q6H PRN #15 tablet 03/07/19 Oxycodone HCl/Acetaminophen 1 each PO Q6H PRN #20 tablet 03/07/19 [Percocet 5-325 mg Tablet] Valacyclovir HCl [Valacyclovir] 1,000 mg PO TID #20 tablet 03/07/19 dexAMETHasone [Decadron] 4 mg PO DAILY #7 tablet 03/07/19 Famotidine [Pepcid] 20 mg PO BID PRN #30 tablet 09/09/23 - Allergies Allergies/Adverse Reactions: Allergies Allergy/AdvReac Type Severity Reaction Status Date / Time hydrocodone Allergy Headache Verified 09/09/23 01:38 - Social History Does the pt smoke?: No Smoking Status: Never smoker Does the pt drink ETOH?: No Does the pt have substance abuse?: No - Immunizations Immunizations are current?: Yes - POLST Patient has POLST: No PD ED PE NORMAL - Vitals Vital signs reviewed: Yes - General General: Alert and oriented X 3, No acute distress, Well developed/nourished - HEENT HEENT: Atraumatic, PERRL, EOMI, Moist mucous membranes, Pharynx benign - Neck Neck: Supple, no meningeal sign - Cardiac Cardiac: RRR - Respiratory Respiratory: No respiratory distress, Clear bilaterally Results - Vitals Vitals: Vital Signs - 24 hr 09/09/23 01:36 Temperature 36.5 C Heart Rate 72 Respiratory 18 Rate Blood Pressure 154/75 H O2 Saturation 100 Oxygen O2 Source Room air - Labs Labs: Laboratory Tests 09/09/23 09/09/23 01:45 01:45 Nasal Adenovirus (PCR) NOT DETECTED Nasal B. parapertussis DNA (PCR) NOT DETECTED Nasal Coronavir 229E PCR NOT DETECTED Nasal Coronavir HKU1 PCR NOT DETECTED Nasal Coronavir NL63 PCR NOT DETECTED Nasal Coronavir OC43 PCR NOT DETECTED Nasal Enterovir/Rhinovir PCR NOT DETECTED Nasal Influenza B PCR NOT DETECTED Nasal Influenza A PCR NOT DETECTED Nasal Parainfluen 1 PCR NOT DETECTED Nasal Parainfluen 2 PCR NOT DETECTED Nasal Parainfluen 3 PCR NOT DETECTED Nasal Parainfluen 4 PCR NOT DETECTED Nasal RSV (PCR) NOT DETECTED Nasal B.pertussis DNA PCR NOT DETECTED Nasal C.pneumoniae (PCR) NOT DETECTED Brad Human Metapneumo PCR NOT DETECTED Nasal M.pneumoniae (PCR) NOT DETECTED Nasal SARS-CoV-2 (PCR) NOT DETECTED Group A Strep Rapid Negative PD Medical Decision Making - ED course ED course: 63-year-old woman presents with burning sensation in the throat moving upward, possibly mediated by acid reflux. GI cocktail was ordered and patient had significant relief. Pepcid sent to pharmacy. She also had strep and RVP that was negative here in the ED. Plan to follow-up with her primary care provider for referral to GI. Return precautions given. Departure - Departure Disposition: 01 Home, Self Care Clinical Impression: Acid reflux Condition: Stable Instructions: GERD Dc Prescriptions: Famotidine [Pepcid] 20 mg PO BID PRN #30 tablet PRN Reason: As Needed Per Provider Orders Print Language: [place] Comments: You were seen in the emergency department for stomach upset and received a cocktail of GI medications. [facility]. Please follow-up with your primary care provider for referral to GI and return to the emergency department if you have any new or worsening symptoms or other concerns. Lo atendieron en el departamento de emergencias por malestar estomacal y recibi un cctel de medicamentos gastrointestinales. Receta enviada a [facility]. Serena un seguimiento con elmore proveedor de atencin primaria para que lo derive a GI y regrese al departamento de emergencias si tiene algn sntoma nuevo o que empeora u otras inquietudes. Forms: PCP List
[2023-09-09] MEDS: LIDOCAINE VISCOUS 2% 15 ML UDC MM STA (02:43)
[2023-09-09] MEDS: FAMOTIDINE 20 MG TABLET PO STA (02:43)
[2023-09-09] MEDS: MAG HYDROX/AL HYDROX/SIMETH 30 ML UDC PO STA (02:43)
[2023-09-09] MEDS: diphenhydrAMINE ELIXIR 25 MG/10 ML UDC PO STA (02:44)
[2023-09-09 03:45] VITALS: BP 119/68
== END 2023-09-09 03:37 | disposition home or self-care (01) ==
LOC: ED 01:25
DX: K21.9 Gastro-esophageal reflux disease without esophagitis (principal)
CPT/HCPCS: 87070; 87430; 87633; 99283; A9270; Q0162

== ENCOUNTER 2023-11-12 14:20 | Outpatient (CLI) | payer OTHER ==
[2023-11-12 14:37] LABS: ABSOLUTE RETICS # AUTO 0.054 10^6/uL (0.020-0.110); BASOPHILS # (AUTO) 0.1 10^3/uL (0.0-0.1); BASOPHILS % (AUTO) 1.3 %; EOSINOPHILS # (AUTO) 0.4 10^3/uL (0.0-0.7); EOSINOPHILS % (AUTO) 5.2 %; HCT - HEMATOCRIT 29.9 % (37.0-47.0); HGB - HEMOGLOBIN 9.7 g/dL (12.0-16.0); LYMPHOCYTES # (AUTO) 3.1 10^3/uL (1.5-3.5); LYMPHOCYTES % (AUTO) 37.3 %; MEAN CORPUSCULAR HEMOGLOBIN 29.8 pg (27.0-31.0); MEAN CORPUSCULAR HGB CONC 32.4 g/dL (32.0-36.0); MEAN PLATELET VOLUME 10.4 fL (7.9-10.8); MONOCYTES # (AUTO) 0.6 10^3/uL (0.0-1.0); MONOCYTES % (AUTO) 6.9 %; NEUTROPHILS % (AUTO) 49.1 %; PLT - PLATELET COUNT 292 10^3/uL (130-450); RED BLOOD COUNT 3.25 10^6/uL (4.20-5.40); RED CELL DISTRIBUTION WIDTH 13.4 % (12.0-15.0); RETICULOCYTE COUNT % (AUTO) 1.65 % (0.5-2.3); WHITE BLOOD COUNT 8.2 x10^3/uL (4.8-10.8)
[2023-11-12 15:14] LABS: FERRITIN 51.7 ng/mL (11.0-306.8)
== END 2023-11-12 14:21 | disposition home or self-care (01) ==
LOC: LAB 14:20
PROVIDERS: ATTEND Nurse Practitioner
DX: D64.9 Anemia, unspecified (principal)
CPT/HCPCS: 36415; 82607; 82728; 82746; 83540; 84466; 85025; 85045